=== PATIENT | female | born 1950 | race Caucasian/White ===

== ENCOUNTER 2018-11-14 08:46 | Day surgery (SDC) | payer OTHER ==
[2018-11-14 09:19] VITALS: TEMP 97.5; O2SAT 100
[2018-11-14] MEDS ORDERED: Lactated Ringer's 500 ML IV SCH (10:15)
[2018-11-14] MEDS ORDERED: Lactated Ringer's 500 ML IV ONE (10:16)
[2018-11-14] MEDS ORDERED: Midazolam 2 MG/2 ML VIAL ONE (10:18)
[2018-11-14] MEDS ORDERED: Propofol 10 mg/ml Inj (20 ML) ONE (10:18)
[2018-11-14] MEDS ORDERED: Lidocaine Hydrochloride 5 ML INJ ONE (10:39)
[2018-11-14 13:24] VITALS: BP 114/41; PULSE 62; RESP 18
== END 2018-11-14 12:40 | disposition home or self-care (01) ==
LOC: C.ENDO 08:46
PROVIDERS: ATTEND Internal Medicine Gastroenterology
DX: K55.21 Angiodysplasia of colon with hemorrhage (principal); D50.9 Iron deficiency anemia, unspecified; K44.9 Diaphragmatic hernia without obstruction or gangrene; K29.70 Gastritis, unspecified, without bleeding; K57.30 Diverticulosis of large intestine without perforation or abscess without bleeding; K64.8 Other hemorrhoids; F41.9 Anxiety disorder, unspecified; K21.9 Gastro-esophageal reflux disease without esophagitis
CPT/HCPCS: 43239; 45382; 88305; J2250; J2704; J7120